=== PATIENT | male | born 1960 | race Caucasian/White ===

== ENCOUNTER 2023-08-18 10:01 | Emergency (ER) | payer OTHER, SELFPAY ==
[2023-08-18 10:06] VITALS: BP 159/82
--- NOTE | 2023-08-18 10:13 | EDRN ---
Glenys Mohan PA in room w/pt at this time.
--- NOTE | 2023-08-18 10:23 | ED.GENMED ---
History of Present Illness
General
Chief Complaint: Musculo-Skeletal Complaint
Source: patient and spouse
Time Seen by Provider: 08/18/23 10:12
Travel History
Have you had any contact with someone who has COVID-19?: No
Do you have any symptoms of coronavirus? Fever > 100 degrees, chills, cough, shortness of breath, sore throat, loss of taste or smell, muscle aches, or headache?: No
History of Present Illness
History of Present Illness:
62-year-old male with past medical history of cervical disc herniation, previous bladder and prostate cancer and mitral valve prolapse presenting to the emergency department for evaluation of left shoulder pain that started gradually last night
without any activity stating he is overall not sure as to what caused the pain. Notes the pain is mainly over the anterior portion of his shoulder and is exacerbated with movement. He denies any focal weakness or numbness but does note when he
moves his arm with internal rotation and forward flexion he does feel little bit of paresthesia into the forearm. Denies any previous history of injury although notes that he was very active and played a lot of sports when he was younger and states
that he has noticeable clicking and grinding sensation with movement of both shoulders.
Past History
Past History
ED Past Medical History: Other (Cervical HNP )
ED Past Surgical History: None
Social History
Tobacco: Non-smoker
Alcohol: None
Drug: None
Personal:
Living: with family
Review of Systems
Review of Systems
All Other Systems: ROS reviewed and negative except as documented in HPI and ROS
Phy Exam
Physical Exam
Physical Exam:
GENERAL: Alert , in no apparent distress
EYE: conjunctiva clear
Head: Normocephalic atraumatic
NECK: Supple,
ENT: mmm.
LUNGS: no acute respiratory distress
NEUROLOGICAL: Alert and oriented
SKIN: Warm and dry, skin intact.
MUSCULOSKELETAL: left upper extremity: No obvious deformity, erythema, edema, ecchymosis, abrasion or laceration. Tenderness over the anterior deltoid and bicipital groove. Patient has reproducible pain with forward flexion and abduction with
limited range of motion to about 40 degrees in both directions. Pain is also reproduced with active and passive elbow flexion at the level of the anterior deltoid. Extremity is otherwise warm and well-perfused and neurovascularly intact.
PSYCH: Normal and appropriate interaction.
Scores
Heart Failure Risk
Heart Failure Risk Score: Not Applicable
Heart Score for Chest Pain Patients
STEMI patient?: Not applicable
Withdrawal Assessment of Alcohol
Withdrawal Assessment Completed?: Not applicable
Course
Orders/Labs/Results
Orders:
Orders
08/18/23 10:21
Sling Left-Treatment ONCE
Ibuprofen [Motrin] 600 mg PO NOW STA
CR Shoulder, Trauma - Left Urgent
Comment:
Reason For Exam: pain anteriorly, decreased ROM
Vital Signs
Initial and Last Documented VS:
Initial Vital Signs
Temp Pulse Resp BP Pulse Ox
97.3 F 51 18 159/82 98
08/18/23 10:06 08/18/23 10:06 08/18/23 10:06 08/18/23 10:06 08/18/23 10:06
Last Documented Vital Signs
Temp Pulse Resp BP Pulse Ox
97.3 F 51 18 159/82 98
08/18/23 10:06 08/18/23 10:06 08/18/23 10:06 08/18/23 10:06 08/18/23 10:06
MDM/Problems Addressed
Differential Diagnosis Includes:
Tendinitis, arthritis, bursitis, rotator cuff injury, given lack of trauma I have no concern for fracture or dislocation
MDM/Problems Addressed:
62-year-old male presenting the emergency department for evaluation of left shoulder pain over the last 16 hours or so. Has not taken anything for his pain. Called primary care provider this morning who advised patient to come to the emergency
department. No focal weakness or numbness. I do suspect tendinitis or rotator cuff injury to the the most likely diagnoses. Will obtain an x-ray. Encouraged close follow-up with orthopedics. Anticipate discharge home. Will treat with sling and
anti-inflammatories.
*Radiology
Radiology exam reviewed: preliminary read by ED provider (No acute abnormalities)
*Pulse Oximetry
Patient hypoxic: no
*Critical Care Note
Total Time (30-74mins, 75-104mins- exclusive of procedures): Not Applicable
Patient Management
Escalation/DeEscalation of care consider admission/obs:
Patient's x-ray unremarkable. He was provided with information for orthopedics. Aware of return precautions to ER but otherwise stable for discharge home. Ultimately decided to forego the sling as he states this did not make him feel any better
and made his pain a little bit worse.
ED Attending Note
-
Portions of this chart may have been created with voice recognition software.� Occasional wrong word or��sound alike� substitutions may have occurred due to the inherent limitations of voice recognition software.
Discharge Plan
Departure
Patient Disposition: Home (Routine Discharge)
Date of Disposition: 08/18/23
Time of Disposition: 10:54
Patient with high blood pressure during this ER visit?: Yes
Discharge Problem:
Left shoulder pain
Instructions: Shoulder Pain (DC)
Prescriptions:
No Action
docusate sodium 50 MG capsule
50 mg PO DAILY
sulfamethoxazole-trimethoprim 1 TABLET tablet
1 tab PO BID Qty: 14 0RF
Rx Instructions:
Take for 7 more days
oxycodone-acetaminophen 5 MG/325 MG tablet
1 tab PO Q4HPRN PRN (Reason: pain) Qty: 10 0RF
ibuprofen 600 MG tablet
600 mg PO Q6HPRN PRN (Reason: leg pain) Qty: 0 0RF
Rx Instructions:
Suggest you can use Advil 2-3 tabs Three times per days for next 2-3 days with food for muscular leg pain
L.acid,para-B.bifidum-S.therm [RisaQuad] 1 CAP capsule
1 cap PO DAILY Qty: 14 0RF
Rx Instructions:
take once daily for next 2 weeks(Probiotic)
ondansetron 4 MG tablet,disintegrating
4 mg PO TIDPRN PRN (Reason: nausea/vomiting) Qty: 12 0RF
Referrals:
Paul Valencia MD [Active] - ([facility])
Lee Guzman MD [Family Provider] -
Jim Mendes MD [Active] - ([facility])
Interventions
Interventions:
*Risk Screen - Suicide Last Done: 08/18/23 10:06
*General Assessment Last Done: 08/18/23 10:06
*Neglect/Abuse Screening Last Done: 08/18/23 10:06
ED- Fall Risk Assessment Last Done: 08/18/23 10:35
*ED COVID-19 Vaccine History Last Done: 08/18/23 10:35
*Nursing Disposition Last Done: 08/18/23 11:05
ED-Musculoskeletal Assessment Last Done: 08/18/23 10:35
Discharge Date and Time
Discharge Date/Time: 08/18/23 11:05
Print Language: ITALIAN
[2023-08-18] MEDS: MOTRIN 600 MG PO (10:30)
--- NOTE | 2023-08-18 10:32 | EDRN ---
declined sling as pulling arm across front of body causes increased pain.
[2023-08-18 10:35] VITALS: BMI 28.9
--- NOTE | 2023-08-18 10:40 | EDRN ---
Pt was going to take sling at this time. Pt was shown how to place sling w/ assist of ED PCT at this time. Pt voiced understanding of sling placement.
--- NOTE | 2023-08-18 11:05 | EDRN ---
Pt at discharge refused sling at discharge saying he will not use it as he gets pain when arm is at 90 degree angle and across his front torso. Pt stated he has to keep his arm for comfort reasons down at his side.
== END 2023-08-18 11:05 | disposition home or self-care (01) ==
LOC: EMR 10:01
PROVIDERS: EMERGENCY PHYSICIAN Student in an Organized Health Care Education/Training Program; FAMILY PHYSICIAN Internal Medicine
DX: M25.512 Pain in left shoulder (principal); R20.2 Paresthesia of skin; R03.0 Elevated blood-pressure reading, without diagnosis of hypertension; M50.20 Other cervical disc displacement, unspecified cervical region; Z85.51 Personal history of malignant neoplasm of bladder; Z85.46 Personal history of malignant neoplasm of prostate; I34.1 Nonrheumatic mitral (valve) prolapse; Z88.8 Allergy status to other drugs, medicaments and biological substances
CPT/HCPCS: 99283; 73030